=== PATIENT | male | born 1990 | race African-American/Black ===

== ENCOUNTER 2018-02-07 06:23 | Day surgery (SDC) | payer OTHER ==
[2018-02-07] MEDS ORDERED: GLYCOPYRROLATE 0.4 MG INJ (06:38)
[2018-02-07] MEDS ORDERED: LIDOCAINE 2% (SDV) 5 ML INJ (06:38)
[2018-02-07] MEDS ORDERED: NEOSTIGMINE 3 MG/3 ML SYRINGE (06:38)
[2018-02-07] MEDS ORDERED: PROPOFOL 20 ML (06:38)
[2018-02-07] MEDS ORDERED: MIDAZOLAM 1 MG/ML 2 ML INJ (06:38)
[2018-02-07] MEDS ORDERED: ROCURONIUM 50 MG INJ (06:38)
[2018-02-07] MEDS ORDERED: ONDANSETRON 4 MG INJ (06:39)
[2018-02-07] MEDS ORDERED: DEXAMETHASONE 4 MG/ML 1 ML INJ ×2 (06:39→08:22)
[2018-02-07] MEDS ORDERED: FENTAnyl 50 MCG/ML VIAL (06:39)
[2018-02-07] MEDS ORDERED: MEPERIDINE 25 MG INJ IV (07:00)
[2018-02-07] MEDS ORDERED: LABETALOL HCL 20MG INJ IV (07:00)
[2018-02-07] MEDS ORDERED: CEFAZOLIN 1 GM INJ (07:00)
[2018-02-07] MEDS ORDERED: FENTAnyl 50 MCG/ML VIAL IV ×2 (07:00)
[2018-02-07] MEDS ORDERED: MIDAZOLAM 1 MG/ML 2 ML INJ IV (07:00)
[2018-02-07] MEDS ORDERED: EPHEDrine SULFATE 50 MG/5 ML SYG IV (07:00)
[2018-02-07] MEDS ORDERED: OXYCODONE/ACETAMINOPHEN (5/325) TAB PO ×4 (07:00→11:30)
[2018-02-07] MEDS ORDERED: ATROPINE 1 MG/10 ML SYRINGE IV (07:00)
[2018-02-07] MEDS ORDERED: SUCCINYLCHOLINE CHLORIDE 100 MG/5 ML SYG IV (07:00)
[2018-02-07] MEDS ORDERED: HYDROmorphONE (0.2 MG/ML) 10ML SYG IV ×2 (07:00)
[2018-02-07] MEDS ORDERED: morphine (1 MG/ML) 10ML SYRINGE IV ×3 (07:00)
[2018-02-07] MEDS ORDERED: hydrALAzine 20 MG INJ IV (07:00)
[2018-02-07] MEDS ORDERED: DIPHENHYDRAMINE 50 MG INJ IV (07:00)
[2018-02-07] MEDS: BUPIVACAINE 0.5% (SDV) 30 ML INJ (09:13)
[2018-02-07] MEDS: LIDOCAINE 1% (MPF) 30 ML INJ (09:14)
[2018-02-07] MEDS: TRIAMCINOLONE ACET 40 MG/ML INJ (10:43)
[2018-02-07] MEDS: BACITRACIN/POLYMYXIN 28.35 GM OINT TOP (10:54)
[2018-02-07] MEDS: HYDROmorphONE (0.2 MG/ML) 10ML SYG IV (11:25)
[2018-02-07] MEDS: ONDANSETRON 4 MG INJ IV (11:25)
[2018-02-07] MEDS ORDERED: ONDANSETRON 4 MG INJ IV (11:30)
[2018-02-07] MEDS ORDERED: morphine 2 MG INJ IV (11:30)
== END 2018-02-07 15:30 | disposition home or self-care (01) ==
LOC: SDS 06:23
DX: M20.5X1 Other deformities of toe(s) (acquired), right foot (principal); M62.471 Contracture of muscle, right ankle and foot; I10 Essential (primary) hypertension
CPT/HCPCS: 28755; 73630; 88304; 88311; 97161